=== PATIENT | female | born 1980 | race Caucasian/White ===

== ENCOUNTER 2017-10-31 19:34 | Emergency (ER) | payer SELFPAY ==
[~2017-10-31] VITALS: Ht 152.4 cm; Wt 63.6 kg
[2017-10-31 19:39] VITALS: BP 125/74; PULSE 106; TEMP 97.4
== END 2017-10-31 20:04 | disposition left against medical advice (07) ==
LOC: COL.ER 19:34
DX: F41.9 Anxiety disorder, unspecified (principal)